=== PATIENT | female | born 1995 | race Caucasian/White ===

== ENCOUNTER 2023-05-21 12:52 | Observation (INO) | payer BC ==
[2023-05-21] MEDS ORDERED: PREN-96 PO (13:33)
[2023-05-21 15:40] LABS: Urine Amorphous Crystal FEW /hpf (None Seen); Urine Bacteria FEW /hpf (None Seen); Urine Blood 3+ /uL (Negative); Urine Clarity CLOUDY (Clear); Urine Color Yellow (Yellow); Urine Mucus FEW (None Seen); Urine Protein, UAD TRACE (Negative); Urine Urobilinogen Normal (Negative); Urine WBC 12 /hpf (0 - 5); Urine WBC Clumps PRESENT /hpf (None Seen); Urine pH 7.5 (5.0-8.0)
== END 2023-05-21 16:26 | disposition home or self-care (01) ==
LOC: LDRP 12:52 → UNDOADMOB 12:52 → LDRP 12:55
PROVIDERS: ADMIT Obstetrics & Gynecology; ATTEND Obstetrics & Gynecology
DX: O23.42 Unspecified infection of urinary tract in pregnancy, second trimester (principal); O62.9 Abnormality of forces of labor, unspecified; O46.92 Antepartum hemorrhage, unspecified, second trimester; O26.852 Spotting complicating pregnancy, second trimester; O26.892 Other specified pregnancy related conditions, second trimester; N89.8 Other specified noninflammatory disorders of vagina; R51.9 Headache, unspecified; Z3A.20 20 weeks gestation of pregnancy; Z79.899 Other long term (current) drug therapy
CPT/HCPCS: 59025; 76815; 76817; 81001; 81002; 94760; G0378

== ENCOUNTER 2023-08-06 14:45 | Observation (INO) | payer BC ==
[~2023-08-06 14:45] MED LIST: PREN-96 PO
== END 2023-08-06 16:15 | disposition home or self-care (01) ==
LOC: UNDOADMOB 14:45 → LDRP 14:45
PROVIDERS: ADMIT Obstetrics & Gynecology; ATTEND Obstetrics & Gynecology
DX: O69.89X0 Labor and delivery complicated by other cord complications, not applicable or unspecified (principal); Z3A.31 31 weeks gestation of pregnancy
CPT/HCPCS: 59025; 76818; 81002; G0378

== ENCOUNTER 2023-08-11 10:14 | Observation (INO) | payer BC | END 2023-08-11 11:41 | disposition home or self-care (01) | LOC: LDRP 10:14 | PROVIDERS: ADMIT Obstetrics & Gynecology; ATTEND Obstetrics & Gynecology | DX: O69.89X0 Labor and delivery complicated by other cord complications, not applicable or unspecified (principal); Z3A.32 32 weeks gestation of pregnancy | CPT/HCPCS: 59025; 76818; 81002; 94760; G0378 ==

== ENCOUNTER 2023-08-18 09:50 | Observation (INO) | payer BC ==
[~2023-08-18] VITALS: Ht 172.7 cm; Wt 78.0 kg
[2023-08-18] MEDS ORDERED: LACTATED RINGER'S 1,000 ML IV ONE (10:45)
== END 2023-08-18 11:43 | disposition home or self-care (01) ==
LOC: UNDOADMOB 09:50 → LDRP 09:50
PROVIDERS: ADMIT Obstetrics & Gynecology; ATTEND Obstetrics & Gynecology
DX: O69.89X0 Labor and delivery complicated by other cord complications, not applicable or unspecified (principal); Z3A.33 33 weeks gestation of pregnancy
CPT/HCPCS: 59025; 76818; 81002; 94760; 96360; G0378

== ENCOUNTER 2023-08-25 08:58 | Observation (INO) | payer BC | END 2023-08-25 11:14 | disposition home or self-care (01) | LOC: LDRP 09:50 | PROVIDERS: ADMIT Obstetrics & Gynecology; ATTEND Obstetrics & Gynecology | DX: O69.89X0 Labor and delivery complicated by other cord complications, not applicable or unspecified (principal); O26.893 Other specified pregnancy related conditions, third trimester; R51.9 Headache, unspecified; N89.8 Other specified noninflammatory disorders of vagina; H53.8 Other visual disturbances; Z3A.34 34 weeks gestation of pregnancy | CPT/HCPCS: 59025; 76818; 81002; 94760; G0378 ==

== ENCOUNTER 2023-09-01 08:52 | Observation (INO) | payer BC | END 2023-09-01 09:45 | disposition home or self-care (01) | LOC: LDRP 08:52 → UNDOADMOB 08:52 → LDRP 08:58 → UNDODISOB 09:45 | PROVIDERS: ADMIT Obstetrics & Gynecology; ATTEND Obstetrics & Gynecology | DX: O69.89X0 Labor and delivery complicated by other cord complications, not applicable or unspecified (principal); O42.913 Preterm premature rupture of membranes, unspecified as to length of time between rupture and onset of labor, third trimester; Z3A.35 35 weeks gestation of pregnancy | CPT/HCPCS: 59025; 76818; 81002; 94760; G0378 ==

== ENCOUNTER 2023-09-04 09:39 | Observation (INO) | payer BC | END 2023-09-04 11:01 | disposition home or self-care (01) | LOC: LDRP 09:39 | PROVIDERS: ADMIT Nurse Practitioner Women's Health; ATTEND Nurse Practitioner Women's Health | DX: O69.89X0 Labor and delivery complicated by other cord complications, not applicable or unspecified (principal); O42.913 Preterm premature rupture of membranes, unspecified as to length of time between rupture and onset of labor, third trimester; Z3A.35 35 weeks gestation of pregnancy | CPT/HCPCS: 59025; 76818; 81002; 94760; G0378 ==

== ENCOUNTER 2023-09-08 09:51 | Observation (INO) | payer BC | END 2023-09-08 11:38 | disposition home or self-care (01) | LOC: UNDOADMOB 09:51 → LDRP 09:51 | PROVIDERS: ADMIT Obstetrics & Gynecology; ATTEND Obstetrics & Gynecology | DX: O43.193 Other malformation of placenta, third trimester (principal); Z3A.36 36 weeks gestation of pregnancy | CPT/HCPCS: 59025; 76818; 81002; 94760; G0378 ==

== ENCOUNTER 2023-09-11 07:58 | Observation (INO) | payer BC | END 2023-09-11 09:19 | disposition home or self-care (01) | LOC: LDRP 07:58 → UNDOADMOB 07:58 → LDRP 08:01 | PROVIDERS: ADMIT Obstetrics & Gynecology; ATTEND Obstetrics & Gynecology | DX: O69.89X0 Labor and delivery complicated by other cord complications, not applicable or unspecified (principal); Z3A.36 36 weeks gestation of pregnancy | CPT/HCPCS: 59025; 76818; 81002; 94760; G0378 ==

== ENCOUNTER 2023-09-15 09:50 | Observation (INO) | payer BC | END 2023-09-15 11:33 | disposition home or self-care (01) | LOC: LDRP 09:50 → UNDOADMOB 09:50 → LDRP 10:05 → UNDODISOB 11:33 | PROVIDERS: ADMIT Obstetrics & Gynecology; ATTEND Obstetrics & Gynecology | DX: O43.193 Other malformation of placenta, third trimester (principal); Z3A.37 37 weeks gestation of pregnancy | CPT/HCPCS: 59025; 76818; 81002; 94760; G0378 ==

== ENCOUNTER 2023-09-18 09:50 | Observation (INO) | payer BC | END 2023-09-18 10:51 | disposition home or self-care (01) | LOC: LDRP 09:50 | PROVIDERS: ADMIT Obstetrics & Gynecology; ATTEND Obstetrics & Gynecology | DX: O69.89X0 Labor and delivery complicated by other cord complications, not applicable or unspecified (principal); O42.92 Full-term premature rupture of membranes, unspecified as to length of time between rupture and onset of labor; Z3A.37 37 weeks gestation of pregnancy | CPT/HCPCS: 59025; 76818; 81002; 94760; G0378 ==

== ENCOUNTER 2023-09-22 09:55 | Observation (INO) | payer BC | END 2023-09-22 11:18 | disposition home or self-care (01) | LOC: UNDOADMOB 09:55 → LDRP 09:55 → UNDODISOB 11:18 | PROVIDERS: ADMIT Obstetrics & Gynecology; ATTEND Obstetrics & Gynecology | DX: O43.193 Other malformation of placenta, third trimester (principal); Z3A.38 38 weeks gestation of pregnancy | CPT/HCPCS: 59025; 76818; 81002; G0378 ==

== ENCOUNTER 2023-09-24 18:57 | Inpatient (IN) | payer BC ==
[~2023-09-24] VITALS: Ht 172.7 cm; Wt 111.1 kg
[2023-09-24] MEDS ORDERED: PHISODERM TOP SOLN 240ML BTL TOP PRN (19:15)
[2023-09-24] MEDS ORDERED: PROMETHAZINE HCL 25 MG/ML 1ML IV PRN (19:15)
[2023-09-24] MEDS ORDERED: BUTORPHANOL TARTRATE 2 MG/1 ML VIAL IV PRN ×2 (19:15)
[2023-09-24] MEDS ORDERED: LIDOCAINE 2%HCL (LOCAL ANESTH.) INJ 20ML MDV IJ PRN (19:15)
[2023-09-24] MEDS: LACTATED RINGER'S 1,000 ML IV SCH (19:57)
[2023-09-24] MEDS ORDERED: DERMOPLAST 60ML BOTTLE TOP ONE (20:02)
[2023-09-24] MEDS ORDERED: PHISODERM TOP SOLN 240ML BTL TOP ONE (20:02)
[2023-09-24] MEDS ORDERED: WITCH HAZEL-GLYCERIN PAD TOP ONE (20:02)
[2023-09-24 20:11] LABS: Basophils # (auto) 0 10 ^3/uL (0-0.2); Basophils % (auto) 0.3 % (0.0-2.0); Eosinophils # (auto) 0.1 10 ^3/uL (0-0.8); Eosinophils % (auto) 0.9 % (0.0-7.0); Hematocrit 43.1 % (36.0-46.0); Hemoglobin 14.6 g/dL (12.2-16.2); Lymphocytes # (auto) 2.3 10 ^3/uL (0.4-5.4); Lymphocytes % (auto) 20.9 % (10.0-50.0); Mean Corpuscular Hemoglobin 32.4 pg (28.0-32.0); Mean Corpuscular Hgb Conc. 33.9 g/dL (32.0-36.0); Mean Corpuscular Volume 95.6 fL (80.0-100.0); Monocytes # (auto) 0.8 10 ^3/uL (0-1.3); Monocytes % (auto) 7.6 % (0.0-12.0); Neutrophils # (auto) 7.8 10 ^3/uL (1.6-8.6); Neutrophils % (auto) 70.3 % (37.0-80.0); Nucleated Red Blood Cells % 0.1 %; Red Blood Cells 4.51 10^6/uL (4.0-5.20); Red Cell Distribution Width 13.4 % (11.8-14.3)
[2023-09-24 20:17] LABS: Urine Bacteria FEW /hpf (None Seen); Urine Blood Negative /uL (Negative); Urine Clarity Clear (Clear); Urine Color Yellow (Yellow); Urine Mucus FEW (None Seen); Urine Protein, UAD TRACE (Negative); Urine Specific Gravity 1.023 (1.001-1.035); Urine Urobilinogen Normal (Negative); Urine WBC 2 /hpf (0 - 5); Urine pH 6.5 (5.0-8.0)
[2023-09-24] MEDS ORDERED: miSOPROStol 50 MCG per PRE-CUT 1/2 TAB ONE (20:19)
[2023-09-24 20:24] LABS: Amphetamine Screen, Urine Neg (NEGATIVE); Barbiturate Scree,Urine Neg (NEGATIVE); Benzodiazephine Screen, Urine Neg (NEGATIVE); Cannabinoid Screen, Urine Neg (NEGATIVE); Cocaine Screen, Urine Neg (NEGATIVE); Opiate Scree,Urine Neg (NEGATIVE); Phencyclidine Screen, Urine Neg (NEGATIVE)
[2023-09-24 20:28] LABS: Alanine Aminotransferase 14 U/L (7-40); Albumin 3.8 g/dL (3.2-4.8); Alkaline Phosphatase 155 U/L (46-116); Anion Gap 8 (5-15); Aspartate Aminotransferase 22 U/L (13-40); BUN/Creatinine Ratio 10.5 (10.0-20.0); Bilirubin, Total 0.3 mg/dL (0.2-1.0); Blood Urea Nitrogen 6 mg/dL (9-23); Calcium 9.1 mg/dL (8.7-10.4); Carbon Dioxide 21 mmol/L (20-30); Chloride 108 mmol/L (98-107); Glucose 101 mg/dL (74-106); INR 0.93 (0.9-1.15); Partial Thromboplastin Time 27.6 SEC (24.5-34.5); Prothrombin Time 9.8 sec (9.3-11.8); Sodium 137 mmol/L (136-145); Total Protein 6.1 g/dL (5.7-8.2)
[2023-09-24] MEDS ORDERED: miSOPROStol 50 MCG per PRE-CUT 1/2 TAB PO PRN (20:30)
[2023-09-24] MEDS ORDERED: miSOPROStol 100 mcg TAB PR PRN (22:00)
[2023-09-24] MEDS ORDERED: diphenhdrAMINE HCL 50 MG/1 ML VL IV PRN (22:00)
[2023-09-24] MEDS ORDERED: MINERAL OIL TOPICAL 10ml TOP PRN (22:00)
[2023-09-24] MEDS ORDERED: METHYLERGONOVINE MALEATE 0.2 MG/ML AMP IM PRN (22:00)
[2023-09-24] MEDS ORDERED: TRANEXAMIC ACID 1,000 MG in SODIUM CHL 0.9% 100 ML IV PRN (22:00)
[2023-09-24] MEDS ORDERED: fentaNYL CITRATE 100 MCG/2 ML VL IV PRN (22:00)
[2023-09-24] MEDS ORDERED: CARBOPROST TROMETHAMINE 250 MCG/1ML VIAL IM PRN (22:00)
[2023-09-24] MEDS ORDERED: ACETAMINOPHEN 325 MG TAB PO PRN (22:00)
[2023-09-24] MEDS ORDERED: PROMETHAZINE HCL 25 MG/ML 1ML IM PRN (22:00)
[2023-09-24] MEDS ORDERED: ONDANSETRON HCL 4 MG/2 ML VIAL IV PRN ×2 (22:00)
[2023-09-25] MEDS ORDERED: DIPHENOXYLATE W/ATROPINE 2.5 MG TAB PO SCH
[2023-09-25] MEDS ORDERED: fentaNYL CITRATE 100 MCG/2 ML VL IV ONE (00:15)
[2023-09-25] MEDS ORDERED: LIDOCAINE HCL 2 %PF INJ 10ML AMP IJ ONE (00:15)
[2023-09-25] MEDS ORDERED: ePHEDrine SULFATE 50 MG/ML AMP IV ONE (00:15)
[2023-09-25] MEDS ORDERED: ePHEDrine SULFATE 50 MG/ML AMP ONE (01:07)
[2023-09-25] MEDS: LACTATED RINGER'S 1,000 ML IV SCH ×3 (02:30→21:00)
[2023-09-25] MEDS ORDERED: FAMOTIDINE (10MG/ML) 2ML VL IV ONE ×2 (07:00→09:17)
[2023-09-25] MEDS ORDERED: TERBUTALINE SULFATE 1 MG/ML 1ML VIAL SC PRN (08:30)
[2023-09-25] MEDS ORDERED: LACT. RINGERS/OXYTOCIN 20UNITS 1,000 ML IV ONE ×2 (08:52→13:50)
[2023-09-25] MEDS: LACT. RINGERS/OXYTOCIN 20UNITS 1,000 ML IV SCH (09:01)
[2023-09-25] MEDS ORDERED: ROPIVACAINE HCL 100 ML ONE ×3 (10:07→21:34)
[2023-09-25] MEDS ORDERED: diphenhdrAMINE HCL 50 MG/1 ML VL ONE (10:07)
[2023-09-25] MEDS ORDERED: GENTAMICIN SULFATE IV ONE (21:15)
[2023-09-25] MEDS ORDERED: D5W 5% IV ONE (21:15)
[2023-09-25] MEDS ORDERED: ACETAMINOPHEN 500 MG TAB PO ONE (21:25)
[2023-09-25] MEDS ORDERED: LACT. RINGERS/OXYTOCIN 20UNITS 500 ML IV ONE (23:30)
[2023-09-25] MEDS: AMPICILLIN SOD 2GM INJ 2 GM in SODIUM CHL 0.9% 100 ML IV SCH (23:36)
[2023-09-26] MEDS ORDERED: LACT. RINGERS/OXYTOCIN 20UNITS 500 ML IV ONE
[2023-09-26 03:00] VITALS: BP 131/63; PULSE 103; RESP 18; TEMP 98.4; O2SAT 97
[2023-09-26] MEDS ORDERED: ONDANSETRON ODT 4 MG TAB PO PRN (03:00)
[2023-09-26] MEDS ORDERED: ACETAMINOPHEN 325 MG TAB PO PRN (03:00)
[2023-09-26] MEDS ORDERED: IBUPROFEN 600 MG TAB PO PRN (03:00)
[2023-09-26] MEDS ORDERED: ACETAMINOPHEN 325 MG TAB PO ONE (04:16)
[2023-09-26] MEDS: AMPICILLIN SOD 2GM INJ 2 GM in SODIUM CHL 0.9% 100 ML IV SCH ×3 (06:37→18:46)
[2023-09-26 08:06] LABS: RPR Non Reactive (Non Reactive)
[2023-09-26 09:36] LABS: Basophils # (auto) 0.1 10 ^3/uL (0-0.2); Basophils % (auto) 0.8 % (0.0-2.0); Eosinophils # (auto) 0.1 10 ^3/uL (0-0.8); Eosinophils % (auto) 0.6 % (0.0-7.0); Hematocrit 40.8 % (36.0-46.0); Hemoglobin 13.7 g/dL (12.2-16.2); Lymphocytes # (auto) 2.5 10 ^3/uL (0.4-5.4); Lymphocytes % (auto) 14.4 % (10.0-50.0); Mean Corpuscular Hgb Conc. 33.7 g/dL (32.0-36.0); Mean Corpuscular Volume 95.1 fL (80.0-100.0); Monocytes # (auto) 1.5 10 ^3/uL (0-1.3); Monocytes % (auto) 8.7 % (0.0-12.0); Neutrophils # (auto) 13.3 10 ^3/uL (1.6-8.6); Neutrophils % (auto) 75.5 % (37.0-80.0); Red Blood Cells 4.29 10^6/uL (4.0-5.20); Red Cell Distribution Width 13.4 % (11.8-14.3); White Blood Cell 17.6 10^3/uL (4.4-10.8)
[2023-09-26 09:58] LABS: Alanine Aminotransferase 18 U/L (7-40); Albumin 3.5 g/dL (3.2-4.8); Alkaline Phosphatase 139 U/L (46-116); Anion Gap 9 (5-15); Aspartate Aminotransferase 43 U/L (13-40); Calcium 8.9 mg/dL (8.5-10.1); Carbon Dioxide 19 mmol/L (20-30); Chloride 111 mmol/L (98-107); Glucose 95 mg/dL (74-106); Sodium 139 mmol/L (136-145)
[2023-09-26 09:59] LABS: Bilirubin, Total 0.4 mg/dL (0.2-1.0); Total Protein 5.6 g/dL (5.7-8.2)
[2023-09-26 10:20] LABS: BUN/Creatinine Ratio 8.3 (10.0-20.0); Blood Urea Nitrogen < 5 mg/dL (9-23)
[2023-09-26 11:00] VITALS: BP 131/76; PULSE 96; RESP 17; TEMP 98.3
[2023-09-26 15:09] VITALS: BP 122/58; PULSE 90; RESP 15; TEMP 98.1; O2SAT 97
[2023-09-26] MEDS: LACTATED RINGER'S 1,000 ML IV SCH ×2 (18:45→23:57)
[2023-09-26] MEDS: LACT. RINGERS/OXYTOCIN 20UNITS 1,000 ML IV SCH (18:46)
[2023-09-26 19:15] VITALS: BP 128/64; PULSE 93; RESP 20; TEMP 97.8; O2SAT 96
[2023-09-26] MEDS ORDERED: IBUPROFEN 600 MG TAB PO ONE (19:26)
[2023-09-26] MEDS: DERMOPLAST 60ML BOTTLE TOP PRN ×2 (19:28→19:30)
[2023-09-26] MEDS: WITCH HAZEL-GLYCERIN PAD TOP PRN ×2 (19:28→19:30)
[2023-09-26] MEDS ORDERED: DOCUSATE SOD 100 MG CAP PO ONE (21:50)
[2023-09-26] MEDS ORDERED: DOCUSATE SOD 100 MG CAP PO SCH ×2 (22:00)
[2023-09-26 23:00] VITALS: BP 127/64; PULSE 89; RESP 18; TEMP 98; O2SAT 95
[2023-09-27 03:00] VITALS: BP 130/70; PULSE 90; RESP 17; TEMP 98.2; O2SAT 96
[2023-09-27 07:09] VITALS: BP 124/69; PULSE 80; RESP 20; TEMP 97.8; O2SAT 99
[2023-09-27 11:12] VITALS: BP 120/71; PULSE 83; RESP 18; TEMP 97.9; O2SAT 97
[2023-09-28 19:06] LABS: Treponema pallidum Ab (FTA-Ab) Non Reactive (Non Reactive)
== END 2023-09-27 12:00 | disposition home or self-care (01) | DRG 805 ==
LOC: LDRP 18:57 → UNDOADMIN 18:57 → LDRP 19:12
PROVIDERS: ADMIT Obstetrics & Gynecology; ATTEND Obstetrics & Gynecology
PROC: 10E0XZZ Delivery of Products of Conception, External Approach (ICD-10-PCS; principal; 2023-09-25)
PROC: 0HQ9XZZ Repair Perineum Skin, External Approach (ICD-10-PCS; 2023-09-25)
PROC: 0UQMXZZ Repair Vulva, External Approach (ICD-10-PCS; 2023-09-25)
PROC: 3E0DXGC Introduction of Other Therapeutic Substance into Mouth and Pharynx, External Approach (ICD-10-PCS; 2023-09-25)
PROC: 3E0R3BZ Introduction of Anesthetic Agent into Spinal Canal, Percutaneous Approach (ICD-10-PCS; 2023-09-25)
PROC: 00HU33Z Insertion of Infusion Device into Spinal Canal, Percutaneous Approach (ICD-10-PCS; 2023-09-25)
DX: O99.344 Other mental disorders complicating childbirth (principal); O41.1230 Chorioamnionitis, third trimester, not applicable or unspecified; Z37.0 Single live birth; O44.43 Low lying placenta NOS or without hemorrhage, third trimester; F32.A Depression, unspecified; F41.9 Anxiety disorder, unspecified; O99.214 Obesity complicating childbirth; O70.0 First degree perineal laceration during delivery; O71.82 Other specified trauma to perineum and vulva; Z3A.38 38 weeks gestation of pregnancy
CPT/HCPCS: 36415; 59025; 59200; 59409; 62282; 80053; 80307; 81001; 85025; 85610; 85730; 86592; 86850; 86900; 86901; 94760; 94762; 96360; 96361; 96365; 96366; 96374; 96375; G0378; J2590; J3490; J7060